=== PATIENT | female | born 2000 | race African-American/Black ===

== ENCOUNTER 2021-04-22 17:11 | Emergency (ER) | payer OTHER, SELFPAY ==
[2021-04-22 17:39] VITALS: BP 121/77; PULSE 75; RESP 14; TEMP 36.7; O2SAT 99
[2021-04-22 17:50] VITALS: BP 121/77; PULSE 75; RESP 18; TEMP 36.7; O2SAT 99
--- NOTE | 2021-04-22 18:03 | ED.GENADULT ---
HPI - General Adult General Chief complaint: Skin/Abscess/Foreign Body <PEARL Russ Last Filed: 04/22/21 19:59> Stated complaint: wound on hand <PEARL Russ Last Filed: 04/22/21 19:59> Time Seen by Provider: 04/22/21 18:02 <PEARL Russ Last Filed: 04/22/21 19:59> History of Present Illness HPI narrative: Patient is a 20-year-old female who comes to the ED today with history of eczema complaining of a painful rash in her right palm. Says it has been present for last couple weeks. Is not draining. Not radiating. No other symptoms or concerns. Admits to previous history of similar symptoms and says that she sought medical attention and it ended up being an abscess that needed to be drained. <PEARL Russ Last Filed: 04/22/21 19:59> Related Data Allergies/adverse reactions: Allergies Allergy/AdvReac Type Severity Reaction Status Date / Time diphenhydramine Allergy Intermediate RASH Verified 04/22/21 17:56 <PEARL Russ Last Filed: 04/22/21 19:59> Review of Systems Constitutional: Constitutional: Reports as per HPI, Denies fever(s), Denies night sweats and Denies weakness <PEARL Russ Last Filed: 04/22/21 19:59> Cardiovascular: Cardiovascular: Denies chest pain, Denies edema, Denies leg edema, Denies dyspnea and Denies orthopnea <PEARL Russ Last Filed: 04/22/21 19:59> Respiratory: Respiratory: Denies cough and Denies dyspnea <PEARL Russ Last Filed: 04/22/21 19:59> Gastrointestinal: Gastrointestinal: Denies abdominal pain, Denies constipation, Denies diarrhea, Denies nausea and Denies vomiting <PEARL Russ Last Filed: 04/22/21 19:59> Musculoskeletal: Musculoskeletal: Denies abnormal gait, Denies back pain, Denies numbness and Denies tingling <Milton BartholomewBAMZelalem Trinh Last Filed: 04/22/21 19:59> Integumentary/Breasts: Comments: See HPI <Milton BartholomewSASKIABarrington Trinh Last Filed: 04/22/21 19:59> Neurologic: Denies Abnormal speech present, Denies abnormal gait, Denies numbness, Denies tingling and Denies weakness <Milton BartholomewBAMZelalem Trinh Last Filed: 04/22/21 19:59> Psychiatric: Psychiatric: Denies homicidal ideation and Denies suicidal ideation <Milton BartholomewBAMZelalem Trinh Last Filed: 04/22/21 19:59> Exam Narrative: Pleasant, well-appearing <Milton BartholomewBAMZelalem Trinh Last Filed: 04/22/21 19:59> Const: General: cooperative, healthy appearing, comfortable, no acute distress, well developed, alert, awake and Physically active <Milton BartholomewSASKIABarrington Trinh Last Filed: 04/22/21 19:59> Orientation/consciousness: patient oriented x3 <Milton BartholomewBAMZelalem Trinh Last Filed: 04/22/21 19:59> HENMT: Head: normal to inspection, normocephalic and atraumatic <Milton BartholomewBAMZelalem Trinh Last Filed: 04/22/21 19:59> Ears: external ears normal <Milton BartholomewBAMZelalem Trinh Last Filed: 04/22/21 19:59> General nose exam: Normal external nose present <Milton BartholomewBAMZelalem Trinh Last Filed: 04/22/21 19:59> Eyes: Pupils: Equal, round and reactive pupils present <Milton BartholomewBAMZelalem Trinh Last Filed: 04/22/21 19:59> EOM: EOMs intact bilaterally <Milton BartholomewBAMZelalem Trinh Last Filed: 04/22/21 19:59> Neck: Neck: normal visual inspection <Milton BartholomewBAMZelalem Trinh Last Filed: 04/22/21 19:59> Chest: Chest palpation & inspection: normal inspection of the chest and no tenderness <PEARL Russ Last Filed: 04/22/21 19:59> Resp: Effort & Inspection: normal respiratory effort and able to speak in complete sentences <PEARL Russ Last Filed: 04/22/21 19:59> Auscultation: clear to auscultation bilaterally <PEARL Russ Last Filed: 04/22/21 19:59> Cardio: Rate: regular rate <PEARL Russ Last Filed: 04/22/21 19:59> Rhythm: regular rhythm <PEARL Russ Last Filed: 04/22/21 19:59>
[2021-04-22] MEDS: LIDOCAINE, EPINEPHRINE, TETRACAINE VISCOUS SOLN 3 ML (18:30)
== END 2021-04-22 20:56 | disposition home or self-care (01) ==
PROVIDERS: Emergency Provider General Practice
DX: L02.511 Cutaneous abscess of right hand (principal)
CPT/HCPCS: 12001; 99282

== ENCOUNTER 2022-10-29 20:17 | Emergency (ER) | payer OTHER, SELFPAY ==
[2022-10-29 20:18] VITALS: BP 127/70; PULSE 82; RESP 18; TEMP 36.7; O2SAT 100
[2022-10-29 20:48] VITALS: BP 131/81; PULSE 82; RESP 19; O2SAT 99
[2022-10-29] MEDS: SODIUM CHLORIDE 0.9% IV 1,000 ML 999 ML IV CONT (21:26)
[2022-10-29] MEDS: METOCLOPRAMIDE HCL INJ 10 MG/2 ML VIAL IV PUSH (21:26)
[2022-10-29 21:28] LABS: Basophils Percent Auto 0.3 % (0.2-1.2); Eosinophils Absolute Auto 0.3 K/mm3 (0-0.3); Eosinophils Percent Auto 3.4 % (0-4.4); Hematocrit 43.3 % (37.0-47.0); Hemoglobin 14.3 g/dL (12.0-15.0); Immature Granulocyte Absolute 0.03 K/mm3 (0.00-0.031); Immature Granulocyte Percent A 0.3 % (0-0.5); Lymphocytes Absolute Auto 2.64 K/mm3 (0.9-3.2); Lymphocytes Percent Auto 30.6 % (18.3-44.2); Mean Corpuscular Hemoglobin 29.1 pg (26-34); Mean Platelet Volume 10.1 fl (7.4-10.4); Monocytes Absolute Auto 0.7 K/mm3 (0.1-0.6); Monocytes Percent Auto 8.2 % (2.6-8.5); Neutrophils Absolute Auto 4.9 K/mm3 (1.3-6.7); Neutrophils Percent Auto 57.2 % (45.5-73.1); Platelet Count Result 255 k/mm3 (150-375); Red Blood Count 4.92 M/mm3 (4.2-5.4); Red Cell Distribution Width 14.4 % (11.5-14.5); White Blood Count 8.6 K/mm3 (4.5-10.0)
[2022-10-29 21:30] LABS: Appearance Urine Clear (Clear); Bilirubin Urine Negative (Negative); Blood Urine Negative (Negative); Color Urine Yellow (Yellow); Glucose Urine UA Negative (Negative); Ketones Urine Trace mg/dL (Negative); Leukocyte Esterase Ur Negative LEU/UL (Negative); Nitrate Urine Negative (Negative); Protein Urine Negative (Negative); Specific Grav Ur >= 1.030 (1.001-1.035); Urobilinogen Urine 0.2 mg/dL (<2.0)
[2022-10-29 21:31] LABS: Add Urine Microscopic? NO
[2022-10-29 21:47] LABS: Alanine Aminotransferase 31 U/L (6-35); Albumin Level 4.5 g/dL (3.5-5.1); Alkaline Phosphatase 67 U/L (38-126); Anion Gap 10 mmol/L (8-16); Aspartate Amino Transferase 36 U/L (14-36); Bilirubin,Total 0.6 mg/dL (0.2-1.3); Blood Urea Nitrogen 13 mg/dL (7-17); Calcium 8.9 mg/dL (8.4-10.2); Carbon Dioxide 24 mmol/L (22-30); Chloride 103 mmol/L (98-107); Estimated CRCL calculation 93 ml/min; Estimated Glomerular Filt Rate > 60; Glucose 89 mg/dL (65-110); Lipase 110 U/L (23-300); Potassium 3.6 mmol/L (3.4-5.0); Sodium 137 mmol/L (137-145)
--- NOTE | 2022-10-29 22:25 | ED.GENADULT ---
HPI - General Adult General Chief complaint: Nausea/Vomiting/Diarrhea Stated complaint: vomiting Time Seen by Provider: 10/29/22 21:01 History of Present Illness HPI narrative: Patient 22-year-old female who presents the emergency department with chief complaint of nausea vomiting and abdominal discomfort. The patient reports that she had her last period in August and reports that she has felt some uncomfortable feelings in her abdomen and reports that now she has had multiple episodes of nausea and vomiting. The patient reports that she has been able to tolerate p.o. and reports that she has an appointment with an OB but has not done a test. Patient reports no vaginal bleeding Related Data Home Medications Medication Instructions Recorded Confirmed albuterol sulfate 0.63 mg/3 mL 0.63 mg inhalation Q4-6H PRN 11/04/21 solution for nebulization Allergies Allergy/AdvReac Type Severity Reaction Status Date / Time diphenhydramine Allergy Intermediate RASH Verified 10/29/22 20:25 Review of Systems Review of Systems: A 10 system review of systems was completed on the patient and is negative except for what is stated in the HPI. Nursing and ancillary documentation was reviewed. [facility] Past Medical History Medical History Asthma Axillary hyperhidrosis Seasonal allergies Family History Family History Mother Hypertension Social History Social History Smoking status: Never smoker Alcohol intake: never Substance use: never Living arrangements: alone Occupation/Education: occupation Additional occupation/education comments: [employer] Exam Narrative: GENERAL: Well-appearing, well-nourished, and in no acute distress. HEAD: Normocephalic, atraumatic. EYES: PERRLA and EOMI. ENT: Nares clear, no rhinorrhea or epistaxis. Mucous membranes moist. NECK: Supple. CHEST: Clear to auscultation. No respiratory distress. HEART: Regular rate and rhythm. No murmur heard. Normal peripheral pulses. ABDOMEN: Soft, nontender, nondistended, normal active bowel sounds. EXTREMITIES: Normal range of motion. No edema. SKIN: Warm, dry, no rash. NEURO: No focal deficits. Alert and oriented x3. PSYCH: Normal mood and affect. Course Vital Signs Vital signs: Vital Signs Temperature 36.7 C 10/29/22 20:18 Pulse Rate 82 10/29/22 20:18 Respiratory Rate 18 10/29/22 20:18 Blood Pressure 127/70 10/29/22 20:18 Pulse Oximetry 100 10/29/22 20:18 Oxygen Delivery Room Air 10/29/22 20:18 Temperature 36.7 C 10/29/22 20:18 Pulse Rate 82 10/29/22 20:48 Respiratory Rate 19 10/29/22 20:48 Blood Pressure 131/81 10/29/22 20:48 Pulse Oximetry 99 10/29/22 20:48 Oxygen Delivery Room Air 10/29/22 20:18 Medical Decision Making MDM Narrative Medical decision making narrative: Differential diagnosis includes vomiting in early , abdominal pain, ectopic , abdominal discomfort in , UTI, dehydration Patient received a liter of normal saline and 10 mg of Reglan. 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 The patient expressed understanding this and says that she will follow-up with her OB Laboratory studies were obtained which showed a normal white blood cell count electrolytes are within normal limits hCG was 3070 urinalysis showed a specific gravity greater than 1.03 with trace ketones the patient is B positi
[2022-10-29 22:35] VITALS: BP 119/65; PULSE 89; RESP 14; O2SAT 99
== END 2022-10-29 22:40 | disposition left against medical advice (07) ==
PROVIDERS: Emergency Provider Emergency Medicine; PCP Internal Medicine
DX: O21.0 Mild hyperemesis gravidarum (principal); Z3A.00 Weeks of gestation of pregnancy not specified; R10.9 Unspecified abdominal pain
CPT/HCPCS: 36415; 80053; 81003; 81025; 83690; 84702; 85025; 85461; 86850; 86900; 86901; 96361; 96374; 99284; J2765; J7030

== ENCOUNTER 2022-11-02 11:17 | Outpatient (CLI) | payer OTHER, SELFPAY ==
--- NOTE | ~2022-11-02 | US_ITS ---
Pelvic ultrasound. Clinical History: First trimester , pelvic pain Technique: Realtime transabdominal and transvaginal scanning of the pelvis was performed. Color flow Doppler and Doppler spectral analysis were performed. Findings: The uterus is anteverted. There is a probable early intrauterine gestational sac, with yue mated gestational age of 5 weeks 4 days based on average sac diameter of 8 mm. Yolk sac present, with possible very early pole. No cardiac activity seen. The right ovary measures 3.7 x 1.8 x 3.1 cm. No significant right ovarian or adnexal mass is seen. The left ovary measures 3.2 x 1.3 x 2.1 cm. No significant left ovarian or adnexal mass is seen. There is no evidence of free fluid in the cul de sac. Impression: Intrauterine gestation with estimated gestational age of 5 weeks 4 days. Yolk sac present with possib le early pole, but no cardiac activity. This may be related to the early gestational age. Consi octavio short-term follow-up ultrasound in 5-70s to reassess for cardiac activity, if clinically indicate d. Reviewed, dictated and finalized at [facility]. Impression: Intrauterine gestation with estimated gestational age of 5 weeks 4 days. Yolk s ac present with possible early pole, but no cardiac activity. This may be related to the early gestational age. Consider short-term follow-up ultrasound in 5-70s to reassess for cardiac activity, if clinically indicated.
== END 2022-11-02 11:18 | disposition home or self-care (01) ==
PROVIDERS: PCP Internal Medicine; Visit Provider Internal Medicine
DX: O36.80X0 Pregnancy with inconclusive fetal viability, not applicable or unspecified (principal); R10.9 Unspecified abdominal pain; Z3A.01 Less than 8 weeks gestation of pregnancy
CPT/HCPCS: 76801

== ENCOUNTER 2022-11-07 15:44 | Emergency (ER) | payer OTHER, SELFPAY ==
--- NOTE | ~2022-11-07 | US_ITS ---
EXAMINATION: US pelvic complete w TV DATE: 11/07/2022 19:27 INDICATION: vaginal bleeding, early TECHNIQUE: Multiple transabdominal and endovaginal sonographic images of the pelvis were obtained. COMPARISON: 11/02/2022 FINDINGS: Uterus: 7.5 x 4.7 x 4.9 cm. Intrauterine gestational sac measuring 8mm, corresponding to 5 weeks 4 da ys. A well-defined yolk sac is no longer visualized. A well-defined pole is no longer visualize d. Approximately 7 mm echogenic focus in the gestational sac, possibly representing an abnormal appea ring pole or a combination of and yolk sac tissues. No motion detected within the echogen ic focus. Right Ovary: 3.7 x 2.4 x 1.9 cm. Vascular flow is present. Left Ovary: 4.6 x 1.5 x 2.1 W cm. Vascular flow is present. There is no free fluid in the pelvis. IMPRESSION: Intrauterine gestational sac without identification of a definitive pole, yolk sac, or he art motion. Gestational sac size corresponds to 5 weeks and 4 days. Overall findings are suspicious f or failure. Recommend continued close clinical and sonographic follow-up. Reviewed, dictated and finalized at [facility]. IMPRESSION: Intrauterine gestational sac without identification of a definitive pole, yolk sac, or heart motion. Gestational sac size corresponds to 5 weeks a nd 4 days. Overall findings are suspicious for failure. Recommend con tinued close clinical and sonographic follow-up.
[2022-11-07 15:48] VITALS: BP 118/70; PULSE 79; RESP 18; TEMP 36.2; O2SAT 97
[2022-11-07 16:05] LABS: Basophils Percent Auto 0.3 % (0.2-1.2); Eosinophils Absolute Auto 0.4 K/mm3 (0-0.3); Eosinophils Percent Auto 5.4 % (0-4.4); Hematocrit 40.8 % (37.0-47.0); Hemoglobin 13.2 g/dL (12.0-15.0); Immature Granulocyte Absolute 0.01 K/mm3 (0.00-0.031); Immature Granulocyte Percent A 0.1 % (0-0.5); Lymphocytes Absolute Auto 2.15 K/mm3 (0.9-3.2); Lymphocytes Percent Auto 29.9 % (18.3-44.2); Mean Corpuscular HGB Conc 32.4 g/dl (32-36); Mean Corpuscular Hemoglobin 28.6 pg (26-34); Mean Corpuscular Volume 88.3 fl (80-100); Mean Platelet Volume 10.3 fl (7.4-10.4); Monocytes Absolute Auto 0.4 K/mm3 (0.1-0.6); Monocytes Percent Auto 6.1 % (2.6-8.5); Neutrophils Absolute Auto 4.2 K/mm3 (1.3-6.7); Neutrophils Percent Auto 58.2 % (45.5-73.1); Platelet Count Result 224 k/mm3 (150-375); Red Blood Count 4.62 M/mm3 (4.2-5.4); Red Cell Distribution Width 13.9 % (11.5-14.5); White Blood Count 7.2 K/mm3 (4.5-10.0)
--- NOTE | 2022-11-07 16:44 | ED.PREGNANCY ---
HPI - General Chief complaint: Vaginal Bleeding Stated complaint: 3 months p, saw blood clot Time Seen by Provider: 11/07/22 16:06 History of Present Illness HPI Narrative: Patient is a 22-year-old female at approximately 12 weeks gestation presenting with vaginal bleeding. Patient states that for the last week she has had intermittent spotting. States that this morning she had a heavier vaginal bleeding and then she passed a clot. She denies any abdominal pain. No lightheadedness. Patient states that she had an ultrasound about a week ago and was told that things looked normal. Other than the increase in vaginal bleeding today, she denies other complaints. No nausea or vomiting, dysuria, constipation, chest pain, shortness of breath. Related Data Home Medications Medication Instructions Recorded Confirmed albuterol sulfate 0.63 mg/3 mL 0.63 mg inhalation Q4-6H PRN 11/04/21 solution for nebulization Allergies Allergy/AdvReac Type Severity Reaction Status Date / Time diphenhydramine Allergy Intermediate RASH Verified 10/29/22 20:25 Review of Systems Review of Systems: All systems reviewed & are unremarkable except as noted in HPI and below PMFSH Past Medical History Medical History Asthma Axillary hyperhidrosis Seasonal allergies Family History Family History Mother Hypertension Social History Social History Smoking status: Never smoker Alcohol intake: never Substance use: never Living arrangements: alone Occupation/Education: occupation Additional occupation/education comments: [employer] Exam Narrative: GENERAL: Well-appearing, well-nourished, and in no acute distress. Pleasant and cooperative HEAD: Normocephalic, atraumatic. EYES: PERRLA and EOMI. ENT: Nares clear, no rhinorrhea or epistaxis. Mucous membranes moist. NECK: Supple. CHEST: Clear to auscultation. No respiratory distress. HEART: Regular rate and rhythm ABDOMEN: Soft, nontender, nondistended, no guarding or rebound EXTREMITIES: Normal range of motion. No edema. SKIN: Warm, dry, no rash. NEURO: No focal deficits. Alert and oriented x3. PSYCH: Normal mood and affect. Course Vital Signs Vital signs: Vital Signs Temperature 97.2 F L 11/07/22 15:48 Pulse Rate 79 11/07/22 15:48 Respiratory Rate 18 11/07/22 15:48 Blood Pressure 118/70 11/07/22 15:48 Pulse Oximetry 97 11/07/22 15:48 Temperature 97.2 F L 11/07/22 15:48 Pulse Rate 79 11/07/22 15:48 Respiratory Rate 18 11/07/22 15:48 Blood Pressure 118/70 11/07/22 15:48 Pulse Oximetry 97 11/07/22 15:48 MDM - OB/Uterine Contractions MDM Narrative Medical decision making narrative: Patient is a 22-year-old female presenting with vaginal bleeding in the setting of early . Vitals within normal limits. Exam remarkable for the above. Blood work is stable. Hemoglobin is 13.2. Patient's blood type is be positive. Beta hCG is 1748. It appears to be downtrending from prior levels. Do not feel metabolic panel is necessary at this time. Ultrasound was obtained which shows an intrauterine gestational sac without a definitive pole or yolk sac. There is no cardiac motion. Concerning for failure. Discussed the findings with the patient. Given the findings on ultrasound and the downtrending beta-hCG, I most suspect a missed . Patient states that she has an appointment with OB in a couple of days. Advised that she keep this appointment. Also recommended that she follow-up with her PCP. Appropriate return precautions were given. Patient voiced understanding and is agreeable with plan. Discharged in stable condition. Differential Diagnosis Differential diagnosis: Likely other (miscarriage, vaginal bleeding, early pr
--- NOTE | 2022-11-07 16:54 | PC.NURSE ---
Unable to obtain heart tones. Patient reports her LMP was 10.
--- NOTE | 2022-11-07 19:01 | PC.NURSE ---
Patient off unit to US.
--- NOTE | 2022-11-07 19:09 | PC.NURSE ---
Patient report given to EVELYN Trinidad. All questions answered and care of patient transferred.
== END 2022-11-07 22:00 | disposition home or self-care (01) ==
PROVIDERS: Emergency Provider Emergency Medicine; PCP Internal Medicine
DX: O03.9 Complete or unspecified spontaneous abortion without complication (principal)
CPT/HCPCS: 36415; 76830; 76856; 84702; 85025; 85461; 86850; 86900; 86901; 99284

== ENCOUNTER 2025-06-23 18:23 | Emergency (ER) | payer OTHER, SELFPAY ==
[2025-06-23 18:30] VITALS: BP 151/77; PULSE 100; RESP 16; TEMP 36.7; O2SAT 100
--- NOTE | 2025-06-23 20:46 | ED.URI ---
HPI - URI/Sore Throat General Chief Complaint: Upper Respiratory Infection Stated Complaint: fatigue, nausea, congestion Time Seen by Provider: 06/23/25 20:31 History of Present Illness HPI Narrative: 24-year-old female with no comorbidities are significant past medical history presenting to the emergency department with some increased fatigue and congestion for 4 days as well sick contacts including her son at home with similar symptoms. Patient is also concerned about . No cough, shortness of breath, chest pain. No nausea vomiting or abdominal pain. Has not tried anything for symptom control. Was otherwise in her normal state of health. Related Data Home Medications ?Medication ?Instructions ?Recorded ?Confirmed ?Last Taken ?Type albuterol sulfate 0.63 mg/3 mL 0.63 mg inhalation Q4-6H PRN 11/04/21 Unknown History solution for nebulization Allergies Allergy/AdvReac Type Severity Reaction Status Date / Time diphenhydramine Allergy Intermediate RASH Verified 10/29/22 20:25 Review of Systems Review of Systems: As reviewed above in HPI [facility] Past Medical History Medical History Axillary hyperhidrosis Asthma Seasonal allergies Family History Family History Mother Hypertension Social History Social History Smoking status: Never smoker Alcohol intake: never Substance use: never Living arrangements: alone Occupation/Education: occupation Additional occupation/education comments: [employer] Exam Narrative: GENERAL: [Well-appearing, well-nourished, and in no acute distress.] HEAD: [Normocephalic, atraumatic.] EYES: [PERRLA and EOMI.] ENT: Nares clear, no rhinorrhea or epistaxis. Mucous membranes moist. NECK: Supple. CHEST: [Clear to auscultation. No respiratory distress.] HEART: [Regular rate and rhythm]. No murmur heard. [Normal peripheral pulses.] ABDOMEN: [Soft, nondistended], [nontender], [No rigidity or guarding] EXTREMITIES: Normal range of motion. [No edema.] SKIN: Warm, dry, no rash. NEURO: [No focal deficits]. Alert and oriented [x3.] PSYCH: [Normal mood and affect.] Course Vital Signs Vital signs: Vital Signs Temperature 36.7 C 06/23/25 18:30 Pulse Rate 100 06/23/25 18:30 Respiratory Rate 16 06/23/25 18:30 Blood Pressure 151/77 H 06/23/25 18:30 Pulse Oximetry 100 06/23/25 18:30 Temperature 36.8 C 06/23/25 22:05 Pulse Rate 80 06/23/25 22:05 Respiratory Rate 20 06/23/25 22:05 Blood Pressure 122/78 06/23/25 22:05 Pulse Oximetry 99 06/23/25 22:05 MDM - URI/Sore Throat MDM Narrative Medical decision making narrative: 24-year-old female with no comorbidities are significant past medical history presenting to the emergency department with some increased fatigue and congestion for 4 days as well sick contacts including her son at home with similar symptoms. Patient is also concerned about . No cough, shortness of breath, chest pain. No nausea vomiting or abdominal pain. Has not tried anything for symptom control. Was otherwise in her normal state of health. Patient has a benign physical examination. No tachycardia, fever, hypoxemia or significant blood pressure concerns. Patient likely has upper respiratory infection and viral syndrome consistent with her having a sick contact at home with similar symptoms. Patient also requesting a test. COVID flu and RSV panel obtained as well as a test. Safe for discharge afterwards. Negative test and negative viral swabs. Safe for discharge. Medical Records Attestation: I reviewed the patient's medical records. Lab Data Attestation: I reviewed the patient's lab results. Labs: Lab Results 06/23/25 06/23/25 Range/Units 20:34 20:54 POC Urine HCG, Qual Negative (Negative) Influenza A (RT-PCR) Negative (Negative) Influenza B (RT-PCR) Negative (Negative) RSV (RT-PCR) Negative (Negative) SARS-CoV-2 RNA (RT-PCR) Negative (Negative) Discharge Plan Discharge Clinical Impression: Viral illness, Negative test Patient Disposition: Home Condition: Stable Instructions: Antibiotic Form, Viral Syndrome (ED) Additional Instructions: test negative. COVID, flu, RSV tests are all negative. Symptoms consistent with a viral infection. Take [id number] medications such as Tylenol, ibuprofen and cold and flu medicine. Return with any emergent concerns. Patient Language: Maldivian Prescriptions: No Action albuterol sulfate 0.63 mg/3 mL solution for nebulization 0.63 mg inhalation Q4-6H PRN glycopyrrolate 1 mg tablet 1 mg PO BID Qty: 60 0RF Follow-up/Referrals: Boy Guevara DO [Primary Care Provider, Internal Medicine] Time of Disposition: 21:58
[2025-06-23 20:56] LABS: BEDSIDEPREGUCG Negative (Negative)
[2025-06-23 21:14] LABS: Influenza A QL RT-PCR Negative (Negative); Influenza B QL RT-PCR Negative (Negative); RSV RNA, RT-PCR Negative (Negative); SARS-CoV-2 RNA PCR Negative (Negative)
[2025-06-23 22:05] VITALS: BP 122/78; PULSE 80; RESP 20; TEMP 36.8; O2SAT 99
== END 2025-06-23 22:09 | disposition home or self-care (01) ==
PROVIDERS: Emergency Provider Student in an Organized Health Care Education/Training Program; PCP Internal Medicine
DX: B34.9 Viral infection, unspecified (principal); Z20.822 Contact with and (suspected) exposure to COVID-19; J45.909 Unspecified asthma, uncomplicated
CPT/HCPCS: 81025; 87637; 99283